=== PATIENT | female | born 1995 | race American Indian/Alaskan Native ===

== ENCOUNTER 2022-03-09 02:39 | Emergency (ER) | payer SELFPAY | END 2022-03-09 03:21 | LOC: MW.ED 02:39 | DX: T51.0X1A Toxic effect of ethanol, accidental (unintentional), initial encounter (principal) | CPT/HCPCS: 99283; 99284 ==

== ENCOUNTER 2022-03-11 15:27 | Emergency (ER) | payer SELFPAY ==
[2022-03-11 18:23] LABS: ACETAMINOPHEN <2.0 ug/mL; BLOOD UREA NITROGEN,BUN 6 mg/dL (7.0-18.0); CHLORIDE,CL 106 mmol/L (98-107); GLUCOSE RANDOM 102 mg/dL (74-106); POTASSIUM,K 3.5 mmol/L (3.5-5.1); SODIUM,NA 141 mmol/L (136-145)
[2022-03-11 18:36] LABS: CORONAVIRUS COVID-19 NAA NEGATIVE (NEGATIVE); INFLUENZA A NAA NEGATIVE (NEGATIVE); INFLUENZA B NAA NEGATIVE (NEGATIVE)
== END 2022-03-11 20:20 ==
LOC: MW.ED 15:27
DX: F32.A Depression, unspecified (principal); Z91.51 Personal history of suicidal behavior; Z20.822 Contact with and (suspected) exposure to COVID-19
CPT/HCPCS: 0240U; 36415; 80053; 80143; 80179; 80305; 80307; 81001; 81025; 83735; 84443; 85025; 93005; 99285; 93010

== ENCOUNTER 2022-04-28 19:13 | Emergency (ER) | payer SELFPAY ==
[2022-04-28] MEDS ORDERED: Sodium Chloride 0.9% 10 ML Syringe FLUSH PRN (19:18)
[2022-04-28] MEDS ORDERED: Sodium Chloride 0.9% 2.5 ML Syringe FLUSH PRN (19:18)
[2022-04-28] MEDS ORDERED: LORazepam 2 MG/ML SDV IVPUSH ONE (19:19)
[2022-04-28] MEDS ORDERED: LORazepam 2 MG/ML SDV ONE (19:20)
[2022-04-28] MEDS ORDERED: Thiamine 100 MG Tab PO ONE (19:21)
[2022-04-28] MEDS ORDERED: Folic Acid 1 MG Tab PO ONE (19:21)
[2022-04-28] MEDS ORDERED: Sodium Chloride 0.9% 1,000 ML IV ONE (19:21)
[2022-04-28 19:54] LABS: BLOOD UREA NITROGEN,BUN 6 mg/dL (7.0-18.0); CARBON DIOXIDE,CO2 24.4 mmol/L (21.0-32.0); CHLORIDE,CL 102 mmol/L (98-107); GLUCOSE RANDOM 111 mg/dL (74-106); POTASSIUM,K 3.6 mmol/L (3.5-5.1); SODIUM,NA 140 mmol/L (136-145)
[2022-04-28 19:56] LABS: ESTIMATED GFR 80 mL/min (>60)
[2022-04-28] MEDS ORDERED: Magnesium Oxide 400 MG Tab PO ONE (19:57)
== END 2022-04-28 21:56 | disposition home or self-care (01) ==
LOC: MW.ED 19:13
DX: F10.230 Alcohol dependence with withdrawal, uncomplicated (principal)
CPT/HCPCS: 36415; 80053; 80307; 83735; 84703; 85025; 96374; 99284; A9270; J2060

== ENCOUNTER 2022-08-09 02:24 | Emergency (ER) | payer SELFPAY ==
[2022-08-09 03:26] LABS: ACETAMINOPHEN <2.0 ug/mL; BLOOD UREA NITROGEN,BUN 8 mg/dL (7.0-18.0); CARBON DIOXIDE,CO2 24.1 mmol/L (21.0-32.0); CHLORIDE,CL 105 mmol/L (98-107); GLUCOSE RANDOM 116 mg/dL (74-106); POTASSIUM,K 3.5 mmol/L (3.5-5.1); SODIUM,NA 142 mmol/L (136-145)
[2022-08-09 03:27] LABS: ESTIMATED GFR 90 mL/min (>60)
== END 2022-08-09 06:17 | disposition home or self-care (01) ==
LOC: MW.ED 02:24
DX: F32.A Depression, unspecified (principal); F10.129 Alcohol abuse with intoxication, unspecified; Z79.899 Other long term (current) drug therapy; Z20.822 Contact with and (suspected) exposure to COVID-19
CPT/HCPCS: 36415; 80053; 80143; 80179; 80307; 83735; 84443; 85025; 99284; 99285; U0002